=== PATIENT | male | born 1950 | race Caucasian/White ===

== ENCOUNTER 2024-01-30 06:12 | Emergency (ER) | payer OTHER ==
[2024-01-30 06:18] VITALS: TEMP 97.5; BMI 25.5
[2024-01-30] MEDS ORDERED: TRANEXAMIC ACID 1000 MG/10 ML VIAL ONE ×2 (06:19→07:55)
[2024-01-30] MEDS: TRANEXAMIC ACID 1000 MG/10 ML VIAL IVPUSH ONE ×2 (07:17→08:07)
[2024-01-30 07:52] LABS: INR 1.27 (0.83-1.09); PROTHROMBIN TIME (PATIENT) 14.4 SEC (9.7-13.0)
[2024-01-30 07:54] LABS: ACTIVATED PTT 37.5 SECONDS (25.2-36.5)
[2024-01-30 08:05] LABS: HEMOGLOBIN 16.1 G/dL (11.7-16.9); MCH 31.8 pg (25.7-33.7); MCHC 32.3 g/dl (32.0-35.9); MEAN CELL VOLUME 98.7 fl (80-96); MEAN PLT VOLUME 10.6 fl (7.5-11.1); PLATELET COUNT 174.1 10^3/uL (134-434); RBC 5.07 10^6/uL (4.00-5.60); RDW 13.9 % (11.9-15.9); WHITE BLOOD COUNT 8.2 10^3/uL (4.0-10.8)
[2024-01-30 08:31] VITALS: BP 150/83; PULSE 86; RESP 16
[2024-01-30 09:04] LABS: PLATELET ESTIMATE ADEQUATE
== END 2024-01-30 08:44 | disposition home or self-care (01) ==
LOC: FER 06:12
PROC: 3E033GC Introduction of Other Therapeutic Substance into Peripheral Vein, Percutaneous Approach (ICD-10-PCS; principal; 2024-01-30)
PROC: 3E033GC Introduction of Other Therapeutic Substance into Peripheral Vein, Percutaneous Approach (ICD-10-PCS; 2024-01-30)
DX: M27.61 Osseointegration failure of dental implant (principal)
CPT/HCPCS: 36415; 85027; 85610; 85730; 99284-25